=== PATIENT | female | born 1960 | race Caucasian/White ===

== ENCOUNTER 2018-02-15 19:50 | Inpatient (IN) | payer MEDICAID ==
[~2018-02-15] VITALS: Ht 157.5 cm; Wt 80.0 kg
[2018-02-15 21:19] LABS: UA SPECIFIC GRAVITY <=1.005 (1.005-1.035); microscopic required? YES; urine erythrocyte NEGATIVE (NEGATIVE)
[2018-02-15 21:26] LABS: PLATELET COUNT 182 x10^3mcL (130-400)
[2018-02-15 21:34] LABS: CALCIUM 9.4 mg/dL (8.5-10.1); CARBON DIOXIDE 17.4 mmol/L (21-32); CREATININE SERUM 1.4 mg/dL (0.6-1.0); POTASSIUM SERUM 4.4 mmol/L (3.5-5.1)
[2018-02-15 21:39] LABS: ALBUMIN 2.7 g/dL (3.4-5.0); BILIRUBIN TOTAL 1.13 mg/dL (0.20-1.00); TOTAL PROTEIN, SERUM 7.4 g/dL (6.4-8.2)
[2018-02-15 22:25] LABS: RED CELL DISTRIBUTION WIDTH 18.6 % (11.5-14.5)
[2018-02-15 23:17] LABS: MONOCYTE 5 % (0-7); PLATELET MORPHOLOGY PLATELETS NORMAL; SEGMENTED NEUTROPHILS 80 % (37-75); rbc morphology (normal/abnorm) NORMAL (NORMAL)
[2018-02-16] VITALS (12 sets, daily range): BP systolic 89–98; BP diastolic 45–62; Ht 157.5 cm; Wt 80.0 kg
[2018-02-16] MEDS ORDERED: ATORVASTATIN CA10 M1 PO (02:05)
[2018-02-16] MEDS ORDERED: AMLODIPINE BESYL5 M2 PO (02:06)
[2018-02-16] MEDS ORDERED: GOOD SENSE ASPI81 M3 PO (02:06)
[2018-02-16] MEDS ORDERED: PEPCID20 MG PO (02:07)
[2018-02-16] MEDS ORDERED: LISINOPRIL10 MG PO (02:08)
[2018-02-16 02:51] LABS: AMPHETAMINE QUAL UR NONE DETECTED (NEG <=1000)
[2018-02-16 05:58] LABS: MAGNESIUM 1.8 mg/dL (1.8-2.4); PHOSPHOROUS 4.2 mg/dL (2.5-4.9)
[2018-02-16 06:04] LABS: CHOLESTEROL/HDL RATIO 11.4
[2018-02-16 07:04] LABS: CALCIUM 8.2 mg/dL (8.5-10.1); CARBON DIOXIDE 20.4 mmol/L (21-32); CHLORIDE SERUM 109 mmol/L (98-107); GFR1 > 60 mL/min; GLUCOSE SERUM 118 mg/dL (74-106); MAGNESIUM 1.7 mg/dL (1.8-2.4); PHOSPHOROUS 3.9 mg/dL (2.5-4.9); POTASSIUM SERUM 3.9 mmol/L (3.5-5.1); SODIUM SERUM 143 mmol/L (136-145)
[2018-02-16 07:07] LABS: BASOPHIL % 0.1 % (0-2); PLATELET COUNT 145 x10^3mcL (130-400)
[2018-02-16 07:08] LABS: RED CELL DISTRIBUTION WIDTH 18.6 % (11.5-14.5)
[2018-02-16 07:33] LABS: FREE T4 0.78 ng/dL (0.76-1.46)
[2018-02-16 07:50] LABS: FREE THYROXINE INDEX 1.3 ug/dL (1.4-4.5); T4(THYROXINE) 3.7 ug/dL (4.7-13.3)
[2018-02-16 09:08] LABS: T3 TOTAL 0.28 ng/mL
[2018-02-17] VITALS (11 sets, daily range): BP systolic 76–112; BP diastolic 40–62
[2018-02-17 06:55] LABS: BASOPHIL % 0.1 % (0-2)
[2018-02-17 06:56] LABS: PLATELET COUNT 127 x10^3mcL (130-400)
[2018-02-17 07:13] LABS: CALCIUM 8.1 mg/dL (8.5-10.1); CARBON DIOXIDE 22.6 mmol/L (21-32); CHLORIDE SERUM 111 mmol/L (98-107); CREATININE SERUM 0.5 mg/dL (0.6-1.0); GFR1 > 60 mL/min; GLUCOSE SERUM 132 mg/dL (74-106); MAGNESIUM 1.8 mg/dL (1.8-2.4); POTASSIUM SERUM 3.8 mmol/L (3.5-5.1); SODIUM SERUM 141 mmol/L (136-145)
[2018-02-18 05:31] VITALS: BP 96/51
[2018-02-18 07:47] LABS: CALCIUM 7.8 mg/dL (8.5-10.1); CARBON DIOXIDE 21.5 mmol/L (21-32); CHLORIDE SERUM 111 mmol/L (98-107); CREATININE SERUM 0.5 mg/dL (0.6-1.0); GFR1 > 60 mL/min; GLUCOSE SERUM 102 mg/dL (74-106); MAGNESIUM 1.6 mg/dL (1.8-2.4); PHOSPHOROUS 2.3 mg/dL (2.5-4.9); POTASSIUM SERUM 3.6 mmol/L (3.5-5.1); SODIUM SERUM 141 mmol/L (136-145)
[2018-02-18 07:51] LABS: BASOPHIL % 0 % (0-2); PLATELET COUNT 125 x10^3mcL (130-400); RED CELL DISTRIBUTION WIDTH 18.8 % (11.5-14.5)
[2018-02-18 08:37] VITALS: BP 86/49
[2018-02-18 13:41] VITALS: BP 107/68
[2018-02-18 17:06] VITALS: BP 91/43
[2018-02-18 21:23] VITALS: BP 111/69
[2018-02-19 05:52] VITALS: BP 142/66
[2018-02-19 07:19] LABS: CARBON DIOXIDE 19.3 mmol/L (21-32); CHLORIDE SERUM 112 mmol/L (98-107); CREATININE SERUM 0.5 mg/dL (0.6-1.0); GFR1 > 60 mL/min; GLUCOSE SERUM 75 mg/dL (74-106); MAGNESIUM 1.8 mg/dL (1.8-2.4); PHOSPHOROUS 1.9 mg/dL (2.5-4.9); SODIUM SERUM 142 mmol/L (136-145)
[2018-02-19 07:34] LABS: BASOPHIL % 0.4 % (0-2); PLATELET COUNT 145 x10^3mcL (130-400); POTASSIUM SERUM 2.7 mmol/L (3.5-5.1); RED CELL DISTRIBUTION WIDTH 18.2 % (11.5-14.5)
[2018-02-19 08:54] VITALS: BP 133/66
[2018-02-19 12:40] VITALS: BP 121/61
[2018-02-19 15:58] LABS: BASOPHIL % 0.2 % (0-2); PLATELET COUNT 161 x10^3mcL (130-400)
[2018-02-19 16:03] LABS: RED CELL DISTRIBUTION WIDTH 18.2 % (11.5-14.5)
[2018-02-19 16:05] LABS: CALCIUM 7.4 mg/dL (8.5-10.1); CARBON DIOXIDE 20.7 mmol/L (21-32); CHLORIDE SERUM 111 mmol/L (98-107); CREATININE SERUM 0.5 mg/dL (0.6-1.0); GFR1 > 60 mL/min; GLUCOSE SERUM 87 mg/dL (74-106); POTASSIUM SERUM 3.5 mmol/L (3.5-5.1); SODIUM SERUM 141 mmol/L (136-145)
[2018-02-19 17:42] VITALS: BP 143/53
[2018-02-19 22:29] VITALS: BP 138/75
[2018-02-20 04:53] VITALS: BP 116/65
[2018-02-20 07:53] LABS: BASOPHIL % 0.2 % (0-2); PLATELET COUNT 145 x10^3mcL (130-400)
[2018-02-20 07:54] LABS: RED CELL DISTRIBUTION WIDTH 18.3 % (11.5-14.5)
[2018-02-20 08:05] LABS: CALCIUM 7.8 mg/dL (8.5-10.1); CARBON DIOXIDE 21.5 mmol/L (21-32); CHLORIDE SERUM 109 mmol/L (98-107); CREATININE SERUM 0.4 mg/dL (0.6-1.0); GFR1 > 60 mL/min; GLUCOSE SERUM 71 mg/dL (74-106); MAGNESIUM 1.7 mg/dL (1.8-2.4); PHOSPHOROUS 2.9 mg/dL (2.5-4.9); POTASSIUM SERUM 3.2 mmol/L (3.5-5.1); SODIUM SERUM 139 mmol/L (136-145)
[2018-02-20 09:36] VITALS: BP 116/57
[2018-02-20 13:54] VITALS: BP 125/71
[2018-02-20 17:45] VITALS: BP 130/77
[2018-02-20 21:30] VITALS: BP 111/67
[2018-02-21 04:59] VITALS: BP 134/78
[2018-02-21 06:22] LABS: BASOPHIL % 0.2 % (0-2); PLATELET COUNT 145 x10^3mcL (130-400)
[2018-02-21 06:23] LABS: CALCIUM 8.1 mg/dL (8.5-10.1); CARBON DIOXIDE 24.6 mmol/L (21-32); CHLORIDE SERUM 106 mmol/L (98-107); CREATININE SERUM 0.4 mg/dL (0.6-1.0); GFR1 > 60 mL/min; GLUCOSE SERUM 77 mg/dL (74-106); MAGNESIUM 1.9 mg/dL (1.8-2.4); PHOSPHOROUS 3.4 mg/dL (2.5-4.9); POTASSIUM SERUM 3.8 mmol/L (3.5-5.1); SODIUM SERUM 140 mmol/L (136-145)
[2018-02-21 06:31] LABS: RED CELL DISTRIBUTION WIDTH 18.2 % (11.5-14.5)
[2018-02-21 08:40] VITALS: BP 107/65
[2018-02-21 13:50] VITALS: BP 107/65
[2018-02-21] MEDS ORDERED: LAC PO (14:24)
[2018-02-21] MEDS ORDERED: AUGMENTIN 875-1 EACH PO (14:24)
== END 2018-02-21 17:05 | disposition home or self-care (01) | DRG 720 ==
LOC: ED 19:50 → DU 22:36 → MU 02-20 09:11
PROVIDERS: Emergency Medicine; Family Medicine
DX: A41.9 Sepsis, unspecified organism (principal); N17.0 Acute kidney failure with tubular necrosis; E43 Unspecified severe protein-calorie malnutrition; G93.41 Metabolic encephalopathy; L89.152 Pressure ulcer of sacral region, stage 2; I42.9 Cardiomyopathy, unspecified; D49.6 Neoplasm of unspecified behavior of brain; T83.511A Infection and inflammatory reaction due to indwelling urethral catheter, initial encounter; N13.30 Unspecified hydronephrosis; R65.20 Severe sepsis without septic shock; B96.4 Proteus (mirabilis) (morganii) as the cause of diseases classified elsewhere; R33.9 Retention of urine, unspecified; N28.89 Other specified disorders of kidney and ureter; I69.320 Aphasia following cerebral infarction; I10 Essential (primary) hypertension; N39.0 Urinary tract infection, site not specified; K57.30 Diverticulosis of large intestine without perforation or abscess without bleeding; K43.9 Ventral hernia without obstruction or gangrene; Z74.01 Bed confinement status; Z68.27 Body mass index [BMI] 27.0-27.9, adult; Z79.82 Long term (current) use of aspirin; Y73.2 Prosthetic and other implants, materials and accessory gastroenterology and urology devices associated with adverse incidents; Y92.009 Unspecified place in unspecified non-institutional (private) residence as the place of occurrence of the external cause
CPT/HCPCS: 36600; 76770; 83880; 84439; 92610; 97110-GP; 97530-GP; J0696; J1100; J1644; J2543; J2765; J3475; J3480; J7030; J7040; J7050; Q0092; Q0162; Q9967